=== PATIENT | female | born 1955 | race Caucasian/White ===

== ENCOUNTER 2017-01-18 12:02 | Inpatient (IN) | payer OTHER ==
[~2017-01-18] VITALS: Ht 175.3 cm; Wt 105.4 kg
[~2017-01-18 12:02] MED LIST: DICL-86 PO; LEVO.075 PO; LEXA20TA PO; LOVA1TAB47 PO; NEUR100C PO; PREV30CA36 PO; TELM40 PO; TOPI25 PO
[2017-01-18 12:04] VITALS: BP 145/93; PULSE 91; RESP 15; TEMP 98.2; O2SAT 98
--- NOTE | 2017-01-18 12:07 | PD ---
Physical Exam Time Seen by Provider: 12:05 Narrative 61 y/o female sent by her pcp for evaluation/treatment of DVT L arm. Pain in L arm for 2 days, diagnosed yesterday, referred here today. Vital signs reviewed. Seen at triage desk. Awaiting bed placement. Data Data Last Documented VS Vital Signs Date Time Temp Pulse Resp B/P Pulse Ox O2 Delivery O2 Flow Rate FiO2 01/18/17 12:04 98.2 91 15 145/93 98 MDM Medical Record Reviewed: Yes Supervised Visit with PAOLO: Enrike St Jan 18, 2017 12:07
[2017-01-18 12:28] VITALS: BP 158/94; PULSE 88; RESP 18; TEMP 98.7; O2SAT 96
[2017-01-18] MEDS ORDERED: MORPHINE SULFATE 4 MG/ML INJ IV PUSH ONE (12:30)
[2017-01-18 12:35] VITALS: RESP 18; O2SAT 95
--- NOTE | 2017-01-18 12:41 | PD ---
HPI Chief Complaint: Abnormal Results Time Seen by Provider: 12:22 Travel History International Travel<30 days: No Contact w/Intl Traveler<30days: No Traveled to known affect area: No History of Present Illness HPI 7-year-old female arrives with left arm pain swelling and erythema. It started about 2 days ago. She woke up with the pain. It's worse with palpation. She notes burning pain. An ultrasound was performed yesterday which revealed "extensive DVT involving the left upper extremity venous system extending from the axillary vein to the level of the ulnar vein. Subclavian and internal jugular veins not imaged. All other veins demonstrate thrombus that is mostly occlusive." Patient reports bilateral ankle fractures about 5 months prior. She reports flying to [place] about a month ago. She does not have a history of DVT or hypercoagulable state. No oral hormone therapy. PFSH Past Medical History Arthritis: Yes (RHEUMATOID) Blood Disorders: No Cancer: Yes (UTERINE AND OVARIAN CA) Cardiovascular Problems: Yes Chemotherapy: No Diminished Hearing: No Endocrine: Yes Gastrointestinal Disorders: Yes Genitourinary: No Headaches: Yes Hypertension: Yes Immune Disorder: No Musculoskeletal: No Neurologic: Yes Psychiatric: No Respiratory: No Radiation Therapy: No Thyroid Disease: Yes Tetanus Vaccination: > 5 Years Influenza Vaccination: Yes Menopausal: No Past Surgical History Gynecologic Surgery: Yes (AGE 22 PARTIAL HYSTERECTOMY, 1994 L OVARY REMOVED AND COMPLETION OF HYSTERE) Hysterectomy: Yes Other Surgery: Yes Social History Alcohol Use: Yes (OCCASIONAL) Tobacco Use: Yes (/ PPD) Substance Use: No Allergies-Medications (Allergen,Severity, Reaction): Coded Allergies: No Known Allergies (Verified , 01/18/17) Reported Meds & Prescriptions Reported Meds & Active Scripts Active Reported Doxycycline (Doxycycline (Monohydrate)) 100 Mg Cap 100 Mg PO BID Eliquis (Apixaban) 5 Mg Tab 5 Mg PO BID Humira 2-Pack Inj (Adalimumab 2-Pack Inj) 40 Mg/0.8 Ml Syr 40 Mg SQ Q14D Methotrexate 2.5 Mg Tab 2.5 Mg PO Q7D Tizanidine (Tizanidine HCl) 4 Mg Cap 4 Mg PO HS Protonix (Pantoprazole Sodium) 40 Mg Tab 40 Mg PO BID Lasix (Furosemide) 20 Mg Tab 20 Mg PO DAILY Folic Acid 20 Mg Cap 1 Mg PO DAILY Lexapro (Escitalopram Oxalate) 20 Mg Tab 20 Mg PO DAILY Topamax (Topiramate) 100 Mg Tab 100 Mg PO BID Synthroid (Levothyroxine Sodium) 175 Mcg Tab 175 Mcg PO DAILY Lovastatin 20 Mg Tab 20 Mg PO DAILY Losartan (Losartan Potassium) 100 Mg Tab 100 Mg PO DAILY Review of Systems Except as stated in HPI: all other systems reviewed are Neg Physical Exam Narrative GENERAL: 61-year-old female pleasant well-nourished well-developed SKIN: Focused skin assessment warm/dry. HEAD: Atraumatic. Normocephalic. EYES: Pupils equal and round. No scleral icterus. No injection or drainage. ENT: No nasal bleeding or discharge. Mucous membranes pink and moist. NECK: Trachea midline. No JVD. CARDIOVASCULAR: Regular rate and rhythm. No murmur appreciated. RESPIRATORY: No accessory muscle use. Clear to auscultation. Breath sounds equal bilaterally. GASTROINTESTINAL: Abdomen soft, non-tender, nondistended. Hepatic and splenic margins not palpable. MUSCULOSKELETAL: No obvious deformities. No clubbing. No cyanosis. Swelling tenderness erythema on the region of the left proximal forearm within the region of the antecubital fossa and along the medial distal humerus distribution. 2+ dorsalis pedis bilaterally. NEUROLOGICAL: Awake and alert. No obvious cranial nerve deficits. Motor grossly within normal limits. Normal speech. PSYCHIATRIC: Appropriate mood and affect; insight and judgment normal. Data Data Last Documented VS Vital Signs Date Time Temp Pulse Resp B/P Pulse Ox O2 Delivery O2 Flow Rate FiO2 01/18/17 12:35 18 95 Room Air 01/18/17 12:28 98.7 88 158/94 Vital signs reviewed Orders Basic Metabolic Panel (Bmp) (01/18/17 12:27) Complete Blood Count With Diff (01/18/17 12:27) Prothrombin Time / Inr (Pt) (01/18/17 12:27) Act Partial Throm Time (Ptt) (01/18/17 12:27) Ecg Monitoring (01/18/17 12:27) Iv Access Insert/Monitor (01/18/17 12:27) Oximetry (01/18/17 12:27) Oxygen Administration (01/18/17 12:27) Morphine Inj (Morphine Inj) (01/18/17 12:30) Sodium Chloride 0.9% Flush (Ns Flush) (01/18/17 12:30) Sodium Chlor 0.9% 1000 Ml Inj (Ns 1000 M (01/18/17 12:30) Heparin Infusion RISSA.Q1H (01/18/17 12:32) Heparin Inj (Heparin Inj) (01/18/17 12:45) Heparin Inj (Heparin Inj) (01/18/17 18:45) Heparin Inj (Heparin Inj) (01/18/17 18:45) Heparin-D5w Inj (Heparin-D5w Inj) (01/18/17 12:45) Cbc No Diff, Includes Plts (01/21/17 06:00) Act Partial Throm Time (Ptt) (01/18/17 19:32) Occult Blood (Hemoccult) Stool (01/18/17 12:32) Invasive Rad Dept Consult (01/18/17 ) Admit Order (Ed Use Only) (01/18/17 12:45) MDM Medical Decision Making Medical Screen Exam Complete: Yes Emergency Medical Condition: Yes Medical Record Reviewed: Yes Differential Diagnosis DVT, hypercoagulable state, cellulitis Narrative Course Heparin started. Case discussed with Invasive Radiology, Dr Fine, who requests IR consultation with admission to hospitalist service. Patient will be admitted with plan for invasive radiology intervention. CBC: WBC 7.1 Hgb 11.5 Plt Count 228 BMP: normal INR 1.0 Plan for admission d/w Dr Chris. Diagnosis Primary Impression: Acute thrombosis of deep vein of left upper extremity Qualified Code: I82.622 - Acute deep vein thrombosis (DVT) of other vein of left upper extremity Admitting Information Admitting Physician Requests: Observation Deejay Campbell MD Jan 18, 2017 12:41
[2017-01-18] MEDS ORDERED: HEPARIN SODIUM - IV 10,000 UNITS/10 ML VIAL IV ONE ×2 (12:45→13:30)
[2017-01-18] MEDS ORDERED: HEPARIN-D5W INJ 250 ML IV SCH ×2 (12:45→15:45)
[2017-01-18] MEDS ORDERED: METH2.5T PO (12:47)
[2017-01-18] MEDS ORDERED: TIZA4CAP3 PO (12:47)
[2017-01-18] MEDS ORDERED: SYNT175T PO (12:47)
[2017-01-18] MEDS ORDERED: FURO1TAB62 PO (12:47)
[2017-01-18] MEDS ORDERED: LEXA20TA PO (12:47)
[2017-01-18] MEDS ORDERED: TOPA100T11 PO (12:47)
[2017-01-18] MEDS ORDERED: LOVA20TA PO (12:47)
[2017-01-18] MEDS ORDERED: FOLI20CA PO (12:47)
[2017-01-18] MEDS ORDERED: PROT40TA PO (12:47)
[2017-01-18] MEDS ORDERED: LOSA100T PO (12:47)
[2017-01-18] MEDS ORDERED: APIX5TAB PO (12:48)
[2017-01-18] MEDS ORDERED: DOXY1CAP91 PO (12:48)
[2017-01-18] MEDS ORDERED: HUMI40KI SQ (12:48)
[2017-01-18 13:14] LABS: AUTOMATED NEUTROPHIL # 4.2 TH/MM3 (1.8-7.7); BASOPHIL % 0.4 % (0.0-2.0); EOSINOPHIL # 0.1 TH/MM3 (0-0.4); EOSINOPHIL % 1.8 % (0.0-4.0); HEMATOCRIT 34.6 % (35.0-46.0); HEMO FLAGS DIFF FINAL; LYMPH % 29.9 % (9.0-44.0); LYMPHOCYTE # 2.1 TH/MM3 (1.0-4.8); MEAN CELL VOLUME 87.7 FL (80.0-100.0); MEAN CORPUSCULAR HEMOGLOBIN 29.2 PG (27.0-34.0); MEAN CORPUSCULAR HGB CONC 33.2 % (32.0-36.0); MONO % 8.3 % (0.0-8.0); NEUT % 59.6 % (16.0-70.0); PLATELET COUNT 228 TH/MM3 (150-450); RED BLOOD COUNT 3.94 MIL/MM3 (4.00-5.30); WHITE BLOOD COUNT 7.1 TH/MM3 (4.0-11.0)
--- NOTE | 2017-01-18 13:22 | HHI.HP ---
HPI Service [facility] Hospitalists Primary Care Physician Modesto Mckenzie MD Admission Diagnosis Acute LUE DVT Chief Complaint: LUE DVT Travel History International Travel<30 Days: No Contact w/Intl Traveler <30 Da: No Traveled to Known Affected Are: No History of Present Illness Ms. Suarez is a 61 y/o WF with RA, hyperlipidemia, HTN, and hypothyroidism who presented to the ED at [facility] on 01/18/17 with left arm pain, swelling and erythema that started about 2 days ago. She reports that she woke up with the pain in the LUE and noted erythema. She called her PCP but was unable to get into to see him and she went to [facility] for evaluation. They started her on Doxycycline and Eliquis on 01/17/17. An ultrasound was performed yesterday which revealed "extensive DVT involving the left upper extremity venous system extending from the axillary vein to the level of the ulnar vein. Subclavian and internal jugular veins not imaged. All other veins demonstrate thrombus that is mostly occlusive." She was sent to the ED for further evaluation. Pt has been started on Heparin gtt and she will be seen by IR for a venogram and attempt at removing the clot today. She does not have a history of DVT or hypercoagulable state. She does not take any oral hormone replacement therapy. Patient reports bilateral ankle fractures about 5 months prior. She reports flying to [place] about a month ago. Review of Systems Constitutional: DENIES: Fever, Chills Eyes: DENIES: Vision loss Ears, nose, mouth, throat: DENIES: Hearing loss Respiratory: DENIES: Cough, Shortness of breath Cardiovascular: DENIES: Chest pain, Palpitations, Dyspnea on Exertion, Lower Extremity Edema Gastrointestinal: DENIES: Abdominal pain, Black stools, Bloody stools, Nausea, Vomiting Genitourinary: DENIES: Hematuria, Dysuria Musculoskeletal: COMPLAINS OF: Joint pain, Joint Swelling Integumentary: COMPLAINS OF: Abnormal pigmentation, DENIES: Rash Neurologic: DENIES: Headache Psychiatric: DENIES: Confusion Past Family Social History Past Medical History Bilateral ankle fracture in 07/2016 Hx of uterine and ovarian cancer at 22 y/o RA Hypothyroidism HTN Hyperlipidemia Fatty liver Depression Hx of PUD Past Surgical History Surgery to bilateral ankles with hardware placement in 07/2016 Partial hysterectomy with right oophorectomy at age 22 Left oophorectomy in 1994 Colonoscopy 2-3 years ago Left knee arthroscopy Reported Medications Doxycycline (Doxycycline (Monohydrate)) 100 Mg Cap 100 Mg PO BID Eliquis 5 Mg PO BID, started on 01/17, only taken 2 pills Humira 2-Pack Inj (Adalimumab 2-Pack Inj) 40 Mg/0.8 Ml Syr 40 Mg SQ Q14D Methotrexate 2.5 Mg Tab 2.5 Mg PO Q7D Tizanidine (Tizanidine HCl) 4 Mg Cap 4 Mg PO HS Protonix (Pantoprazole Sodium) 40 Mg Tab 40 Mg PO BID Lasix (Furosemide) 20 Mg Tab 20 Mg PO DAILY Folic Acid 20 Mg Cap 1 Mg PO DAILY Lexapro (Escitalopram Oxalate) 20 Mg Tab 20 Mg PO DAILY Topamax (Topiramate) 100 Mg Tab 100 Mg PO BID Synthroid (Levothyroxine Sodium) 175 Mcg Tab 175 Mcg PO DAILY Lovastatin 20 Mg Tab 20 Mg PO DAILY Losartan (Losartan Potassium) 100 Mg Tab 100 Mg PO DAILY Allergies: Coded Allergies: No Known Allergies (Verified , 01/18/17) Family History Father at age 58y/o from lung cancer Social History (+)Tobacco use, 3-4 cigarettes per day but has smoked heavier in the past, started at age 16 (+)Occasional alcohol use Physical Exam Vital Signs Vital Signs Date Time Temp Pulse Resp B/P Pulse Ox O2 Delivery O2 Flow Rate FiO2 01/18/17 12:35 18 95 Room Air 01/18/17 12:28 98.7 88 18 158/94 96 Room Air 01/18/17 12:28 18 01/18/17 12:04 98.2 91 15 145/93 98 Physical Exam GENERAL: This is a well-nourished, well-developed patient, in no apparent distress. HEENT: Atraumatic. Normocephalic. No temporal or scalp tenderness. No scleral icterus. Airway patent. NECK: Trachea midline, supple, nontender. CARDIO: Regular. RESP: CTA bilaterally. No wheezes, rales, or rhonchi. ABD: +BS, soft, non-tender, nondistended. EXT: LUE erythema and tenderness above, below and on the antecubital fossa with palpable cords in the antecubital fossa. NEURO: Awake and alert. Motor and sensory grossly within normal limits. Normal speech. Septic Shock Reassessment Heart: Regular rate and rhythm Lungs: Clear Skin: Warm Assessment and Plan Problem List: (1) Acute thrombosis of deep vein of left upper extremity Status: Acute Plan: - Pt is a 61 y/o female who presented to the ED with left arm pain, swelling and erythema that started about 2 days ago. - She was seen outpt at [facility] on 01/17/17 and was started her on Doxycycline and Eliquis. - An LUE ultrasound was performed on 01/17/17 which revealed extensive DVT involving the left upper extremity venous system extending from the axillary vein to the level of the ulnar vein. Subclavian and internal jugular veins not imaged. All other veins demonstrate thrombus that is mostly occlusive. - She was sent to the ED for further evaluation. - Pt has been started on Heparin gtt and she will be seen by IR for a venogram and attempt at removing the clot today. - Cont. Heparin gtt - The LUE DVT seems to be unprovoked. She does not have any hx of DVT, she is not on any hormone replacement therapy. - She did fly to [place] about a month ago but would be unusual to develop a DVT in the UE related to this. - Pt has a hx of tobacco use and her father at a young age, 58, with lung cancer. - We will evaluate with w CT scan of the chest in the next day or so depending on how much contrast she receives with the procedure today for clot removal. (2) HTN (hypertension) Status: Chronic Plan: - Cont. home meds (3) Hyperlipidemia Status: Chronic Plan: - Cont. home meds (4) Hypothyroidism Status: Chronic Plan: - Cont. home meds (5) Tobacco use Status: Chronic Plan: - Tobacco cessation Assessment and Plan Patient examined. Assessment and plan formulated with Meron Driver PA-C. I agree with the above. thrombosis venous system lue. superficial redness/cords and tenderness heparin initiated. sent to IR for eval and thrombectomy if possible. Problem Qualifiers (1) Acute thrombosis of deep vein of left upper extremity: Qualified Code: I82.622 - Acute deep vein thrombosis (DVT) of other vein of left upper extremity Meron Driver Jan 18, 2017 13:22 Jose Steinberg MD Jan 18, 2017 21:50
[2017-01-18 13:25] LABS: APTT (PATIENT) 28.2 SEC (24.3-30.1); PROTHROMBIN TIME - PATIENT 11.2 SEC (9.8-11.6)
[2017-01-18 13:26] LABS: BICARBONATE 22.7 MEQ/L (21.0-32.0); POTASSIUM 3.6 MEQ/L (3.5-5.1)
[2017-01-18] MEDS ORDERED: fentaNYL CITRATE 250 MCG/5 ML AMP ONE (14:29)
[2017-01-18] MEDS ORDERED: MORPHINE SULFATE 4 MG/ML INJ IV PUSH PRN (14:30)
[2017-01-18] MEDS ORDERED: ONDANSETRON HCL 4 MG/2 ML VIAL IV PUSH PRN (14:30)
[2017-01-18] MEDS ORDERED: IOHEXOL 350 MG/ML 100 ML BTL (for RAD DIAG) OTHER ONE (15:15)
[2017-01-18 16:00] VITALS: BP 131/92; PULSE 65; RESP 20; TEMP 97.4; O2SAT 94
--- NOTE | 2017-01-18 16:50 | RADRPT ---
EXAM DATE/TIME: 01/18/2017 15:16 [facility] COMPARISON: No previous studies available for comparison. INDICATIONS : Patient with left arm DVT in need of venogram. MEDICAL HISTORY : HTN Hyperlipidemia Rheumatoid arthritis Hypothyroidism Bilateral ankle fractures 07/2016 HX of uterine and ovarian cancer at 22yrs old SURGICAL HISTORY : Bilateral ankles with hardware placement Partial hysterectomy with right oophorectomy at 22yrs old Left oophorectomy 1995 Colonoscopy ENCOUNTER: Initial ACUITY: 2 days PAIN SCORE: 8/10 LOCATION: Left arm FLUORO TIME: 2.1 minutes IMAGE SERIES: 5 ACCESS SITE: Left ulnar vein CONTRAST: 16 cc Omnipaque (iohexol) 350 MEDICATION(S): 1.) 150 mcg fentanyl (Sublimaze) IV PROCEDURE : 1. Ultrasound-guided venipuncture. 2. Venogram. The risks, benefits and alternatives to the procedure were explained and verbal and written consent w as obtained. The site was prepped in sterile fashion. Full sterile technique was used, including ca p, mask, sterile gloves and gown and a large sterile sheet. Hand hygiene and 2% chlorhexidine and/or betadine/alcohol prep was utilized per protocol for cutaneous antisepsis. The skin and subcutaneous tissues were infiltrated with local anesthetic solution. With ultrasound guidance the selected vein was punctured and positive contrast was injected to demons trate the venous anatomy of the affected extremity. Patient presented with an outside ultrasound report that described extensive thrombosis from the axil anay vein distally into the ulnar. However, preprocedural ultrasound at bedside showed the venous sys tem above the elbow to be patent. Occlusion of the brachial basilic system was identified in the aye on of the antecubital fossa and there was distention and occlusion of the radial vein with a diminuti ve cephalic vein which appeared markedly atretic. With ultrasound guidance, a dermatotomy was made over the radial vein in the subcutaneous tissues wer e bluntly dissected. Access was obtained with a 21 gauge micropuncture needle. The .018 wire was adva nced through the needle into the vein. Over the wire, a 3-4 dilator was placed. 035 wire was advanced through the outer 4 Greek dilator to facilitate placement of a short 6 Greek side-port sheath. A h ockey-stick catheter was then advanced over the wire and through the sheath into the brachial vein. C ontrast injection showed a widely patent brachial basilic system above the elbow. The axillary, subcl raina veins and SVC were also patent. Catheter was withdrawn to the level of the elbow appear contrast injection showed occlusion of the ra dial vein throughout its length. The cephalic vein also appeared to be quite diminutive with segmenta l occlusions. The ulnar vein was not evaluated but appear to be patent on the preprocedural ultrasoun d. CONCLUSION: 1. Uncomplicated venogram as above. 2. The deep venous system above the elbow is all widely patent. 3. Patient has occlusion of the radial vein throughout its course. Clinical symptoms of associated th rombophlebitis. Heparin drip was initiated. Treatment should include elevation of the affected extrem ity with warm compresses to the left forearm. Meir Fine MD on January 18, 2017 at 16:25 Board Certified Radiologist. This report was verified electronically.
[2017-01-18 17:46] VITALS: BP 128/68; PULSE 64; RESP 16; TEMP 97.1; O2SAT 100
[2017-01-18] MEDS ORDERED: HEPARIN SODIUM - IV 10,000 UNITS/10 ML VIAL IV PRN ×2 (18:45)
[2017-01-18 20:00] VITALS: BP 114/79; PULSE 70; RESP 16; TEMP 97; O2SAT 97
[2017-01-18 20:35] LABS: APTT (PATIENT) 27.5 SEC (24.3-30.1)
[2017-01-18] MEDS: TOPIRAMATE 100 MG TAB PO SCH (21:55)
[2017-01-18] MEDS: PANTOPRAZOLE SOD 40 MG DELAYED RELEASE TAB PO SCH (21:55)
[2017-01-18] MEDS: MORPHINE SULFATE 4 MG/ML INJ IV PUSH PRN (21:55)
[2017-01-19] VITALS: BP 110/67; PULSE 69; RESP 16; TEMP 96.8; O2SAT 95
[2017-01-19] MEDS: MORPHINE SULFATE 4 MG/ML INJ IV PUSH PRN ×6 (02:12→20:14)
[2017-01-19 04:00] VITALS: BP 136/85; PULSE 61; RESP 16; TEMP 97.2; O2SAT 96
[2017-01-19 04:54] LABS: APTT (PATIENT) 56.7 SEC (24.3-30.1)
[2017-01-19] MEDS: LEVOTHYROXINE SODIUM 150 MCG TAB PO SCH (05:27)
[2017-01-19] MEDS: LEVOTHYROXINE SODIUM 25 MCG TAB PO SCH (05:27)
[2017-01-19 08:00] VITALS: BP 137/82; PULSE 68; RESP 18; TEMP 96.7; O2SAT 96
--- NOTE | 2017-01-19 08:09 | HHI.PR ---
Subjective Remarks still with swelling and pain lue. antecubital area the worst. also was having some pains in left lower leg since her ankle fxs Objective Vitals heart reg lung cta abd s/nt ext lue cords/redness/tenderness just above the antecubital fossa. redness/cords antecubital fossa and some redness and tenderness on left forearm. Vital Signs Date Time Temp Pulse Resp B/P Pulse Ox O2 Delivery O2 Flow Rate FiO2 01/19/17 04:00 97.2 61 16 136/85 96 01/19/17 00:00 96.8 69 16 110/67 95 01/18/17 20:00 97.0 70 16 114/79 97 01/18/17 17:46 97.1 64 16 128/68 100 01/18/17 16:00 97.4 65 20 131/92 94 01/18/17 12:35 18 95 Room Air 01/18/17 12:28 98.7 88 18 158/94 96 Room Air 01/18/17 12:28 18 01/18/17 12:04 98.2 91 15 145/93 98 Result Diagram: 01/18/17 1302 01/18/17 1302 A/P Problem List: (1) Acute thrombosis of deep vein of left upper extremity Status: Acute Plan: - Pt is a 61 y/o female who presented to the ED with left arm pain, swelling and erythema that started about 2 days ago. - She was seen outpt at [facility] on 01/17/17 and was started her on Doxycycline and Eliquis. - An LUE ultrasound was performed on 01/17/17 which revealed extensive DVT involving the left upper extremity venous system extending from the axillary vein to the level of the ulnar vein. Subclavian and internal jugular veins not imaged. All other veins demonstrate thrombus that is mostly occlusive. - She was sent to the ED for further evaluation. - Pt has been started on Heparin gtt in ED and sent to IR for venogram....found to have occlusion of radial veing. with concern for thrombophlebitis.. - The LUE DVT seems to be unprovoked. She does not have any hx of DVT, she is not on any hormone replacement therapy. - She did fly to [place] about a month ago but would be unusual to develop a DVT in the UE related to this. - Pt has a hx of tobacco use and her father at a young age, 58, with lung cancer. elevate arm. k thermia pad cont iv heparin will get ct c/a/p prior to d/c home cont ivf will get appropriate hypercoag panel now and then more as needed after off anticoagulation. and she will be seen by IR for a venogram and attempt at removing the clot today. - Cont. Heparin gtt (2) HTN (hypertension) Status: Chronic Plan: - Cont. home meds (3) Hyperlipidemia Status: Chronic Plan: - Cont. home meds (4) Hypothyroidism Status: Chronic Plan: - Cont. home meds (5) Tobacco use Status: Chronic Plan: - Tobacco cessation Problem Qualifiers (1) Acute thrombosis of deep vein of left upper extremity: Qualified Code: I82.622 - Acute deep vein thrombosis (DVT) of other vein of left upper extremity Jose Steinberg MD Jan 19, 2017 08:09
[2017-01-19] MEDS: FOLIC ACID 1 MG TAB PO SCH (09:43)
[2017-01-19] MEDS: LOSARTAN 50 MG TAB PO SCH (09:43)
[2017-01-19] MEDS: PANTOPRAZOLE SOD 40 MG DELAYED RELEASE TAB PO SCH ×2 (09:43→21:17)
[2017-01-19] MEDS: FUROSEMIDE 20 MG TAB PO SCH (09:43)
[2017-01-19] MEDS: ESCITALOPRAM OXALATE 20 MG TAB PO SCH (09:43)
[2017-01-19] MEDS: PRAVASTATIN SOD 20 MG TAB PO SCH (09:43)
[2017-01-19] MEDS: TOPIRAMATE 100 MG TAB PO SCH ×2 (09:53→21:17)
[2017-01-19] MEDS ORDERED: INFLUENZA VIRUS VACCINE (QUADRIVALENT) 0.5 ML SYR IM ONE (10:00)
--- NOTE | 2017-01-19 11:28 | RADRPT ---
EXAM DATE/TIME: 01/19/2017 10:00 [facility] COMPARISON: No previous studies available for comparison. INDICATIONS : Bilateral leg swelling. MEDICAL HISTORY : Hypercholesterolemia. Hypertension. Gastroesophageal reflux disease. Migrane. Ulcer. Arthritis. Ovari an/Uterine cancer. Anti coagulant, heprin. SURGICAL HISTORY : Hysterectomy. Pins/Rods Right/Left lower legs. ENCOUNTER: Initial ACUITY: 2 day PAIN SCORE: 4/10 LOCATION: Bilateral leg. TECHNIQUE: Venous ultrasound of the left and right leg was performed from the inguinal ligament to the proximal calf. Real-time, color Doppler and spectral tracing, compression and augmentation techniques were us ed. FINDINGS: RIGHT LEG: Incomplete compression of the popliteal vein and incomplete compression of the proximal peroneal vein but normal filling with color Doppler flow in these regions. Normal compression and normal color Dop pler flow of all of the other deep veins of the right lower extremity. LEFT LEG: There is normal compressibility of the deep venous system from the inguinal region to the proximal ca lf. No echogenic clot is seen in the lumen of the common femoral, femoral, popliteal, and posterior tibial veins. There is a normal response of the venous system to proximal and distal augmentation an d respiration. CONCLUSION: 1. Incomplete compression of the popliteal vein and proximal peroneal vein on the right indicating po ssible small nonocclusive thrombus. This finding is not confirmed on the color Doppler images. 2. No evidence of lower extremity DVT on the left. Geovany Puga MD on January 19, 2017 at 11:23 Board Certified Radiologist. This report was verified electronically.
[2017-01-19 12:00] VITALS: BP 114/72; PULSE 64; RESP 18; TEMP 97; O2SAT 96
[2017-01-19 12:15] LABS: APTT (PATIENT) 30.8 SEC (24.3-30.1)
[2017-01-19 16:00] VITALS: BP 112/64; PULSE 65; RESP 18; TEMP 97; O2SAT 97
[2017-01-19] MEDS: SODIUM CHLOR 0.9% 1000 ML INJ 1,000 ML IV SCH ×2 (16:40→20:16)
[2017-01-19 19:00] LABS: APTT (PATIENT) 34.2 SEC (24.3-30.1)
[2017-01-19 20:00] VITALS: BP 107/63; PULSE 61; RESP 17; TEMP 97.5; O2SAT 96
[2017-01-20] VITALS: BP 91/51; PULSE 66; RESP 16; TEMP 96.3; O2SAT 95
[2017-01-20 03:04] VITALS: BP 133/82; PULSE 67; RESP 17; TEMP 97.3; O2SAT 99
[2017-01-20] MEDS: MORPHINE SULFATE 4 MG/ML INJ IV PUSH PRN ×7 (03:08→23:27)
[2017-01-20 04:15] LABS: APTT (PATIENT) 35.9 SEC (24.3-30.1)
[2017-01-20 04:33] LABS: BICARBONATE 24.8 MEQ/L (21.0-32.0); POTASSIUM 3.9 MEQ/L (3.5-5.1)
[2017-01-20] MEDS: SODIUM CHLOR 0.9% 1000 ML INJ 1,000 ML IV SCH (06:20)
[2017-01-20] MEDS: LEVOTHYROXINE SODIUM 150 MCG TAB PO SCH (06:21)
[2017-01-20] MEDS: LEVOTHYROXINE SODIUM 25 MCG TAB PO SCH (06:21)
[2017-01-20] MEDS ORDERED: SODIUM CHLOR 0.9% 1000 ML INJ 1,000 ML IV ONE (07:30)
[2017-01-20 07:46] VITALS: BP 123/64; PULSE 61; RESP 18; TEMP 96.4; O2SAT 96
--- NOTE | 2017-01-20 08:55 | HHI.PR ---
Subjective Remarks still with some pain in left antecubital fossa/forearm Objective Vitals left antecub fossa, cords/tender.redness better swelling of forearm. good distal pulses. heart reg lungc ta abd s/nt Vital Signs Date Time Temp Pulse Resp B/P Pulse Ox O2 Delivery O2 Flow Rate FiO2 01/20/17 07:46 96.4 61 18 123/64 96 01/20/17 06:41 18 01/20/17 03:04 97.3 67 17 133/82 99 01/20/17 00:00 96.3 66 16 91/51 95 01/19/17 20:00 97.5 61 17 107/63 96 01/19/17 16:00 97.0 65 18 112/64 97 01/19/17 12:00 97.0 64 18 114/72 96 01/19/17 01/19/17 01/20/17 15:00 23:00 07:00 Intake Total 1776 ml 720 ml 300 ml Output Total 400 ml Balance 1776 ml 720 ml -100 ml Intake Oral 960 ml 720 ml 300 ml IV Total 816 ml Output Urine Total 400 ml # Voids 5 5 # Bowel Movements 0 Result Diagram: 01/18/17 1302 01/20/17 0345 A/P Problem List: (1) Acute thrombosis of deep vein of left upper extremity Status: Acute Plan: - Pt is a 61 y/o female who presented to the ED with left arm pain, swelling and erythema that started about 2 days ago. - She was seen outpt at [facility] on 01/17/17 and was started her on Doxycycline and Eliquis. - An LUE ultrasound was performed on 01/17/17 which revealed extensive DVT involving the left upper extremity venous system extending from the axillary vein to the level of the ulnar vein. Subclavian and internal jugular veins not imaged. All other veins demonstrate thrombus that is mostly occlusive. - She was sent to the ED for further evaluation. - Pt has been started on Heparin gtt in ED and sent to IR for venogram....found to have occlusion of radial vein with concern for thrombophlebitis.. - The LUE DVT seems to be unprovoked. She does not have any hx of DVT, she is not on any hormone replacement therapy. - She did fly to [place] about a month ago but would be unusual to develop a DVT in the UE related to this. - Pt has a hx of tobacco use and her father at a young age, 58, with lung cancer. elevate arm. k thermia pad d/c iv heparin. unable to get therapeutic. lovenox for now will get ct c/a/p prior to d/c home cont ivf until after ct scan will get appropriate hypercoag panel now and then more as needed after off anticoagulation. -Pt concerned with her strong fh of malignancy. ct c/a/p (2) HTN (hypertension) Status: Chronic Plan: - Cont. home meds (3) Hyperlipidemia Status: Chronic Plan: - Cont. home meds (4) Hypothyroidism Status: Chronic Plan: - Cont. home meds (5) Tobacco use Status: Chronic Plan: - Tobacco cessation Problem Qualifiers (1) Acute thrombosis of deep vein of left upper extremity: Qualified Code: I82.622 - Acute deep vein thrombosis (DVT) of other vein of left upper extremity Jose Steinberg MD Jan 20, 2017 08:55 Jose Steinberg MD Jan 20, 2017 08:55
[2017-01-20] MEDS: LOSARTAN 50 MG TAB PO SCH (09:58)
[2017-01-20] MEDS: PANTOPRAZOLE SOD 40 MG DELAYED RELEASE TAB PO SCH ×2 (09:58→20:07)
[2017-01-20] MEDS: TOPIRAMATE 100 MG TAB PO SCH ×2 (09:58→20:06)
[2017-01-20] MEDS: FUROSEMIDE 20 MG TAB PO SCH (09:58)
[2017-01-20] MEDS: FOLIC ACID 1 MG TAB PO SCH (09:59)
[2017-01-20] MEDS: PRAVASTATIN SOD 20 MG TAB PO SCH (09:59)
[2017-01-20] MEDS: ESCITALOPRAM OXALATE 20 MG TAB PO SCH (09:59)
[2017-01-20] MEDS: ENOXAPARIN SODIUM 100 MG/ML SYRINGE SQ SCH ×2 (10:07→23:26)
[2017-01-20] MEDS ORDERED: DIATRIZOATE MEGLUM/DIATRIZOATE SOD 9 ML CUP PO ONE (10:15)
[2017-01-20 12:00] VITALS: BP 114/73; PULSE 58; RESP 16; TEMP 97; O2SAT 100
[2017-01-20 12:51] LABS: APTT (PATIENT) 30.4 SEC (24.3-30.1)
[2017-01-20] MEDS ORDERED: IOHEXOL 350 MG/ML 10 ML VIAL (for RAD DIAG) IV ONE (15:46)
[2017-01-20 16:00] VITALS: BP 111/60; PULSE 63; RESP 16; TEMP 96.6; O2SAT 100
--- NOTE | 2017-01-20 16:10 | RADRPT ---
EXAM DATE/TIME: 01/20/2017 15:45 [facility] COMPARISON: No previous studies available for comparison. INDICATIONS : Tumor. IV CONTRAST: 97 cc Omnipaque 350 (iohexol) IV ORAL CONTRAST: Prescribed oral contrast ingested. RADIATION DOSE: 19.81 CTDIvol (mGy) MEDICAL HISTORY : Cardiovascular disease. Chronic obstructive pulmonary disease. uterine and ovarian cancer SURGICAL HISTORY : Hysterectomy. ENCOUNTER: Initial ACUITY: 1 day PAIN SCALE: 0/10 LOCATION: Bilateral abdomen TECHNIQUE: Volumetric scanning of the abdomen and pelvis was performed. Using automated exposure control and ad justment of the mA and/or kV according to patient size, radiation dose was kept as low as reasonably achievable to obtain optimal diagnostic quality images. FINDINGS: LOWER LUNGS: The visualized lower lungs are clear. Coronary artery calcifications. LIVER: Decreased attenuation without lesion. There is no dilation of the biliary tree. No calcified gallst ones. Focal adenomyomatosis of the gallbladder fundus. Subcentimeter low-density hepatic lesion. SPLEEN: Normal size without lesion. Calcified splenic granulomas. PANCREAS: Within normal limits. KIDNEYS: Normal in size and shape. There is no mass, stone or hydronephrosis. ADRENAL GLANDS: Within normal limits. VASCULAR: There is no aortic aneurysm. BOWEL/MESENTERY: The stomach, small bowel, and colon demonstrate no acute abnormality. There is no free intraperitone al air or fluid. ABDOMINAL WALL: Within normal limits. RETROPERITONEUM: There is no lymphadenopathy. BLADDER: No wall thickening or mass. REPRODUCTIVE: Status post hysterectomy. INGUINAL: There is no lymphadenopathy or hernia. MUSCULOSKELETAL: Within normal limits for patient age. CONCLUSION: 1. Mild hepatic steatosis. 2. Focal adenomyomatosis of the gallbladder fundus, benign. 3. Calcified splenic granulomas. 4. Subcentimeter low-density likely related to hepatic cyst. 5. Status post hysterectomy. 6. Coronary artery calcifications and scattered atherosclerotic changes. Rl Interiano MD on January 20, 2017 at 16:06 Board Certified Radiologist. This report was verified electronically.
--- NOTE | 2017-01-20 16:18 | RADRPT ---
EXAM DATE/TIME: 01/20/2017 15:45 [facility] COMPARISON: No previous studies available for comparison. INDICATIONS : Neoplasm. IV CONTRAST: 97 cc Omnipaque 350 (iohexol) IV ; Cumulative dose for multiple exams. RADIATION DOSE: 19.81 CTDIvol (mGy) ; Combined studies MEDICAL HISTORY : Chronic obstructive pulmonary disease. Cardiovascular disease uterine and ovarian cancer SURGICAL HISTORY : Hysterectomy. ENCOUNTER: Initial ACUITY: 1 day PAIN SCALE: 0/10 LOCATION: Bilateral chest TECHNIQUE: Volumetric scanning of the chest was performed. Using automated exposure control and adjustment of t he mA and/or kV according to patient size, radiation dose was kept as low as reasonably achievable to obtain optimal diagnostic quality images. FINDINGS: LUNGS: There is no consolidation or pneumothorax. Small nodule lateral right lower lobe measuring 5-6 mm. Mi nimal atelectasis in the right lower lobe laterally. Small pneumatocele left lower lobe. PLEURA: There is no pleural thickening or pleural effusion. MEDIASTINUM: The heart and great vessels demonstrate no acute abnormality. There is no mediastinal or hilar lymph adenopathy. Coronary artery calcifications. AXILLAE: Within normal limits. No lymphadenopathy. SKELETAL: Within normal limits for patient age. MISCELLANEOUS: The visualized upper abdominal organs demonstrate no acute abnormality. CONCLUSION: 1. A 5-6 mm nodule right upper lobe. A followup CT chest in 6 months. 2. Small pneumatocele left lower lobe, benign. 3. Coronary artery calcifications. 4. Right lower lobe subsegmental atelectasis/scarring Rl Interiano MD on January 20, 2017 at 16:14 Board Certified Radiologist. This report was verified electronically.
[2017-01-20 20:00] VITALS: BP 107/71; PULSE 71; RESP 19; TEMP 97.7; O2SAT 97
[2017-01-20] MEDS: SODIUM CHLORIDE 0.9% FLUSH 10 ML FLUSH IVF PRN (23:27)
[2017-01-21] VITALS: BP 114/73; PULSE 69; RESP 18; TEMP 96.6; O2SAT 98
[2017-01-21] MEDS: SODIUM CHLORIDE 0.9% FLUSH 10 ML FLUSH IVF PRN ×3 (00:12→06:18)
[2017-01-21] MEDS: MORPHINE SULFATE 4 MG/ML INJ IV PUSH PRN ×3 (03:23→09:38)
[2017-01-21 04:00] VITALS: BP 131/79; PULSE 57; RESP 19; TEMP 97; O2SAT 99
[2017-01-21] MEDS: LEVOTHYROXINE SODIUM 150 MCG TAB PO SCH (06:10)
[2017-01-21] MEDS: LEVOTHYROXINE SODIUM 25 MCG TAB PO SCH (06:10)
[2017-01-21 06:46] LABS: HEMATOCRIT 32.4 % (35.0-46.0); MEAN CORPUSCULAR HEMOGLOBIN 29.1 PG (27.0-34.0); MEAN CORPUSCULAR HGB CONC 32.7 % (32.0-36.0); PLATELET COUNT 207 TH/MM3 (150-450); RED BLOOD COUNT 3.64 MIL/MM3 (4.00-5.30); RED CELL DISTRIBUTION WIDTH 17.6 % (11.6-17.2); REVIEW FLAG FINAL; WHITE BLOOD COUNT 5.9 TH/MM3 (4.0-11.0)
[2017-01-21 08:00] VITALS: BP 131/86; PULSE 63; RESP 18; TEMP 97; O2SAT 99
[2017-01-21] MEDS: PANTOPRAZOLE SOD 40 MG DELAYED RELEASE TAB PO SCH ×2 (09:17→21:24)
[2017-01-21] MEDS: TOPIRAMATE 100 MG TAB PO SCH ×2 (09:17→21:30)
[2017-01-21] MEDS: FUROSEMIDE 20 MG TAB PO SCH (09:17)
[2017-01-21] MEDS: PRAVASTATIN SOD 20 MG TAB PO SCH (09:17)
[2017-01-21] MEDS: LOSARTAN 50 MG TAB PO SCH (09:17)
[2017-01-21] MEDS: FOLIC ACID 1 MG TAB PO SCH (09:17)
[2017-01-21] MEDS: ENOXAPARIN SODIUM 100 MG/ML SYRINGE SQ SCH ×2 (09:18→21:24)
[2017-01-21] MEDS: ESCITALOPRAM OXALATE 20 MG TAB PO SCH (09:19)
--- NOTE | 2017-01-21 09:25 | HHI.PR ---
Subjective Remarks Pt complains of upper abdominal pain. She states that she has not had a BM in 3 days. She is able to eat without difficulty +Flatus She is still having pain in the left antecubital fossa Objective Vitals Vital Signs Date Time Temp Pulse Resp B/P Pulse Ox O2 Delivery O2 Flow Rate FiO2 01/21/17 04:00 97.0 57 19 131/79 99 01/21/17 00:00 96.6 69 18 114/73 98 01/20/17 20:00 97.7 71 19 107/71 97 01/20/17 16:00 96.6 63 16 111/60 100 01/20/17 12:00 97.0 58 16 114/73 100 01/20/17 01/20/17 01/21/17 15:00 23:00 07:00 Intake Total 1805 ml 960 ml 1160 ml Output Total 1100 ml 1300 ml 1750 ml Balance 705 ml -340 ml -590 ml Intake Oral 1080 ml 960 ml 480 ml IV Total 725 ml 680 ml Output Urine Total 1100 ml 1300 ml 1750 ml # Bowel Movements 0 Result Diagram: 01/21/17 0602 01/20/17 0345 Other Results Laboratory Tests Test 01/19/17 01/19/17 01/20/17 01/20/17 11:28 18:18 03:45 12:25 Activated Partial 30.8 SEC 34.2 SEC 35.9 SEC 30.4 SEC Thromboplast Time Sodium Level 143 MEQ/L Potassium Level 3.9 MEQ/L Chloride Level 112 MEQ/L Carbon Dioxide Level 24.8 MEQ/L Anion Gap 6 MEQ/L Blood Urea Nitrogen 14 MG/DL Creatinine 0.71 MG/DL Estimat Glomerular Filtration 84 ML/MIN Rate Random Glucose 109 MG/DL Calcium Level 8.9 MG/DL Test 01/21/17 06:02 White Blood Count 5.9 TH/MM3 Red Blood Count 3.64 MIL/MM3 Hemoglobin 10.6 GM/DL Hematocrit 32.4 % Mean Corpuscular Volume 89.0 FL Mean Corpuscular Hemoglobin 29.1 PG Mean Corpuscular Hemoglobin 32.7 % Concent Red Cell Distribution Width 17.6 % Platelet Count 207 TH/MM3 Mean Platelet Volume 10.9 FL Imaging Last Impressions Chest CT 01/20/17 0000 Signed Impressions: Service Date/Time: Friday, January 20, 2017 15:45 - CONCLUSION: 1. A 5-6 mm nodule right upper lobe. A followup CT chest in 6 months. 2. Small pneumatocele left lower lobe, benign. 3. Coronary artery calcifications. 4. Right lower lobe subsegmental atelectasis/scarring Rl Interiano MD Abdomen/Pelvis CT 01/20/17 0000 Signed Impressions: Service Date/Time: Friday, January 20, 2017 15:45 - CONCLUSION: 1. Mild hepatic steatosis. 2. Focal adenomyomatosis of the gallbladder fundus, benign. 3. Calcified splenic granulomas. 4. Subcentimeter low-density likely related to hepatic cyst. 5. Status post hysterectomy. 6. Coronary artery calcifications and scattered atherosclerotic changes. Rl Interiano MD Lower Extremity Ultrasound 01/19/17 0000 Signed Impressions: Service Date/Time: Thursday, January 19, 2017 10:00 - CONCLUSION: 1. Incomplete compression of the popliteal vein and proximal peroneal vein on the right indicating possible small nonocclusive thrombus. This finding is not confirmed on the color Doppler images. 2. No evidence of lower extremity DVT on the left. Geovany Puga MD Venogram 01/18/17 0000 Signed Impressions: Service Date/Time: Wednesday, January 18, 2017 15:16 - CONCLUSION: 1. Uncomplicated venogram as above. 2. The deep venous system above the elbow is all widely patent. 3. Patient has occlusion of the radial vein throughout its course. Clinical symptoms of associated thrombophlebitis. Heparin drip was initiated. Treatment should include elevation of the affected extremity with warm compresses to the left forearm. Meir Fine MD Objective Remarks General: NAD, AAOx3 Chest: CTA Cardiac: Regular Abd: +BS, soft ND/NT Ext: Left antecubital fossa with cords/tenderness/erythema, improving. Left forearm swelling, good distal pulses. A/P Problem List: (1) Acute thrombosis of deep vein of left upper extremity Status: Acute Plan: - Pt is a 61 y/o female who presented to the ED with left arm pain, swelling and erythema that started about 2 days ago. - She was [facility]pt at [facility] on [facility]17 and was started her on Doxycycline and Eliquis. - An LUE ultrasound was performed on 01/17/17 which revealed extensive DVT involving the left upper extremity venous system extending from the axillary vein to the level of the ulnar vein. Subclavian and internal jugular veins not imaged. All other veins demonstrate thrombus that is mostly occlusive. - She was sent to the ED for further evaluation. - Pt has been started on Heparin gtt in ED and sent to IR for venogram and was found to have occlusion of radial vein with concern for thrombophlebitis. - The LUE DVT seems to be unprovoked. She does not have any hx of DVT, she is not on any hormone replacement therapy. - She did fly to [place] about a month ago but would be unusual to develop a DVT in the UE related to this. - Pt has a hx of tobacco use and her father at a young age, 58, with lung cancer. - Heparin was d/c's on 01/19/17 as pt was unable to get therapeutic. - Pt is on Lovenox 100mg Q12H - Pt is to elevate arm and use K-thermia pad - Pain medications changed to po today - Stool softeners BID and MOM as needed. - CT chest (01/20/17) --> A 5-6 mm nodule right upper lobe. A followup CT chest in 6 months. Small pneumatocele left lower lobe, benign. Coronary artery calcifications. Right lower lobe subsegmental atelectasis/scarring - CT Abd/pelvis (01/20/17) --> Mild hepatic steatosis. Focal adenomyomatosis of the gallbladder fundus, benign. Calcified splenic granulomas. Subcentimeter low-density likely related to hepatic cyst. Status post hysterectomy. Coronary artery calcifications and scattered atherosclerotic changes. - Cont. IVF for now - We will get appropriate hypercoagulable panel now and then more as needed after off anticoagulation. - pt will need to followup with Hematology/Oncology for possible PET scan and to followup on hypercoag panel. (2) HTN (hypertension) Status: Chronic Plan: - Cont. home meds (3) Hyperlipidemia Status: Chronic Plan: - Cont. home meds (4) Hypothyroidism Status: Chronic Plan: - Cont. home meds (5) Tobacco use Status: Chronic Plan: - Tobacco cessation Assessment and Plan Patient examined. Assessment and plan formulated with Meron Driver PA-C. I agree with the above. Problem Qualifiers (1) Acute thrombosis of deep vein of left upper extremity: Qualified Code: I82.622 - Acute deep vein thrombosis (DVT) of other vein of left upper extremity Meron Driver Jan 21, 2017 09:25 Jean Bear DO Jan 22, 2017 09:55
[2017-01-21] MEDS ORDERED: MAGNESIUM HYDROXIDE SUSP 30 ML CUP PO PRN (10:00)
[2017-01-21] MEDS ORDERED: ACETAMINOPHEN/HYDROcodone 325 MG/5 MG TAB PO PRN (10:00)
[2017-01-21 12:00] VITALS: BP 108/71; PULSE 61; RESP 18; TEMP 97.4; O2SAT 97
[2017-01-21] MEDS: DOCUSATE SODIUM 100 MG CAP PO SCH ×2 (13:41→21:24)
[2017-01-21] MEDS: ACETAMINOPHEN/HYDROcodone 325 MG/5 MG TAB PO PRN ×3 (13:42→23:01)
[2017-01-21 16:00] VITALS: BP 104/63; PULSE 61; RESP 18; TEMP 97.9; O2SAT 98
[2017-01-21 21:00] VITALS: BP 121/75; PULSE 62; RESP 16; TEMP 96.9; O2SAT 97
[2017-01-22] VITALS: BP 111/67; PULSE 62; RESP 16; TEMP 96.1; O2SAT 99
[2017-01-22 04:00] VITALS: BP 138/86; PULSE 55; RESP 16; TEMP 96.5; O2SAT 98
[2017-01-22] MEDS: ACETAMINOPHEN/HYDROcodone 325 MG/5 MG TAB PO PRN ×3 (04:29→14:48)
[2017-01-22] MEDS: LEVOTHYROXINE SODIUM 150 MCG TAB PO SCH (06:26)
[2017-01-22] MEDS: LEVOTHYROXINE SODIUM 25 MCG TAB PO SCH (06:26)
[2017-01-22 08:00] VITALS: BP 130/72; PULSE 54; RESP 18; TEMP 96.1; O2SAT 100
[2017-01-22] MEDS: DOCUSATE SODIUM 100 MG CAP PO SCH (09:15)
[2017-01-22] MEDS: PANTOPRAZOLE SOD 40 MG DELAYED RELEASE TAB PO SCH (09:15)
[2017-01-22] MEDS: TOPIRAMATE 100 MG TAB PO SCH (09:15)
[2017-01-22] MEDS: FUROSEMIDE 20 MG TAB PO SCH (09:16)
[2017-01-22] MEDS: PRAVASTATIN SOD 20 MG TAB PO SCH (09:16)
[2017-01-22] MEDS: ESCITALOPRAM OXALATE 20 MG TAB PO SCH (09:16)
[2017-01-22] MEDS: FOLIC ACID 1 MG TAB PO SCH (09:16)
[2017-01-22] MEDS: LOSARTAN 50 MG TAB PO SCH (09:16)
[2017-01-22] MEDS: ENOXAPARIN SODIUM 100 MG/ML SYRINGE SQ SCH (09:17)
[2017-01-22] MEDS ORDERED: APIX5TAB PO (09:52)
--- NOTE | 2017-01-22 10:02 | HHI.DS ---
Discharge Summary Admission Date Jan 18, 2017 at 12:47 Discharge Date: Jan 22, 2017 Admitting Diagnosis Acute LUE DVT (1) Acute thrombosis of deep vein of left upper extremity Diagnosis: Principal (2) HTN (hypertension) Diagnosis: Secondary (3) Hyperlipidemia Diagnosis: Secondary (4) Hypothyroidism Diagnosis: Secondary (5) Tobacco use Diagnosis: Secondary Brief History Ms. Suarez is a 61 y/o WF with RA, hyperlipidemia, HTN, and hypothyroidism who presented to the ED at [facility] on 01/18/17 with left arm pain, swelling and erythema that started about 2 days ago. She reports that she woke up with the pain in the LUE and noted erythema. She called her PCP but was unable to get into to see him and she went to [facility] for evaluation. They started her on Doxycycline and Eliquis on 01/17/17. An ultrasound was performed yesterday which revealed "extensive DVT involving the left upper extremity venous system extending from the axillary vein to the level of the ulnar vein. Subclavian and internal jugular veins not imaged. All other veins demonstrate thrombus that is mostly occlusive." She was sent to the ED for further evaluation. Pt has been started on Heparin gtt and she will be seen by IR for a venogram and attempt at removing the clot today. She does not have a history of DVT or hypercoagulable state. She does not take any oral hormone replacement therapy. Patient reports bilateral ankle fractures about 5 months prior. She reports flying to [place] about a month ago. CBC/BMP: 01/21/17 0602 01/20/17 0345 Significant Findings Laboratory Tests Test 01/19/17 01/19/17 01/20/17 01/20/17 11:28 18:18 03:45 12:25 Activated Partial 30.8 SEC 34.2 SEC 35.9 SEC 30.4 SEC Thromboplast Time (24.3-30.1) (24.3-30.1) (24.3-30.1) (24.3-30.1) Chloride Level 112 MEQ/L (98-107) Estimat Glomerular Filtration 84 ML/MIN (>89) Rate Random Glucose 109 MG/DL (74-106) Test 01/21/17 06:02 Red Blood Count 3.64 MIL/MM3 (4.00-5.30) Hemoglobin 10.6 GM/DL (11.6-15.3) Hematocrit 32.4 % (35.0-46.0) Red Cell Distribution Width 17.6 % (11.6-17.2) PE at Discharge General: NAD, AAOx3 Chest: CTA Cardiac: Regular Abd: +BS, soft ND/NT Ext: Left antecubital fossa with cords/tenderness/erythema, improving. Left forearm swelling, good distal pulses. Hospital Course (1) Acute thrombosis of deep vein of left upper extremity Status: Acute Plan: - Pt is a 61 y/o female who presented to the ED with left arm pain, swelling and erythema that started about 2 days ago. - She was seen outpt at [facility] on 01/17/17 and was started her on Doxycycline and Eliquis. - An LUE ultrasound was performed on 01/17/17 which revealed extensive DVT involving the left upper extremity venous system extending from the axillary vein to the level of the ulnar vein. Subclavian and internal jugular veins not imaged. All other veins demonstrate thrombus that is mostly occlusive. - She was sent to the ED for further evaluation. - Pt has been started on Heparin gtt in ED and sent to IR for venogram and was found to have occlusion of radial vein with concern for thrombophlebitis. - The LUE DVT seems to be unprovoked. She does not have any hx of DVT, she is not on any hormone replacement therapy. - She did fly to [place] about a month ago but would be unusual to develop a DVT in the UE related to this. - Pt has a hx of tobacco use and her father at a young age, 58, with lung cancer. - Pt is a smoker - Heparin was d/c's on 01/19/17 as pt was unable to get therapeutic. - Heparin changed to Lovenox 100mg Q12H - Pt instructed to elevate arm and use K-thermia pad - [place] prn - Stool softeners BID and MOM as needed. - CT chest (01/20/17) --> A 5-6 mm nodule right upper lobe. A followup CT chest in 6 months. Small pneumatocele left lower lobe, benign. Coronary artery calcifications. Right lower lobe subsegmental atelectasis/scarring - CT Abd/pelvis (01/20/17) --> Mild hepatic steatosis. Focal adenomyomatosis of the gallbladder fundus, benign. Calcified splenic granulomas. Subcentimeter low-density likely related to hepatic cyst. Status post hysterectomy. Coronary artery calcifications and scattered atherosclerotic changes. - hypercoagulable panel now and then more as needed after off anticoagulation, results pending - pt will need to followup with Hematology/Oncology for possible PET scan and to followup on hypercoag panel. - clinically pt is improved. Pt continues with palpable cord in left antecubital fossa, but no associated erythema. - Case d/w Dr. Cabrera, IR. Venogram was again reviewed. Clot burden below the level of the elbow and NOT amenable to lysis. - will discharge to home today - resume eliquis at 10mg BID x 7d, and then 5mg BID - f/u with PCP, Dr. Mckenzie in 1 week - f/u with Oncology/Hematology in 2 weeks. (2) HTN (hypertension) Status: Chronic Plan: - Cont. home meds (3) Hyperlipidemia Status: Chronic Plan: - Cont. home meds (4) Hypothyroidism Status: Chronic Plan: - Cont. home meds (5) Tobacco use Status: Chronic Plan: - Tobacco cessation Pt Condition on Discharge: Stable Discharge Disposition: Discharge Home Discharge Instructions DIET: Follow Instructions for: As Tolerated, No Restrictions Activities you can perform: Regular-No Restrictions Follow up Referrals: Oncology - 2 Weeks with [facility] PCP Follow-up - [address] [place] Mckenzie Changed Medications: Apixaban (Eliquis) 5 Mg Tab 5 MG PO BID 10mg PO BID 5mg PO BID Blood Clot Prevention #30 Ref 0 TAB ( Medication details modified) Continued Medications: Adalimumab 2-Pack Inj (Humira 2-Pack Inj) 40 Mg/0.8 Ml Syr 40 MG SQ Q14D Ref 0 KIT Escitalopram (Lexapro) 20 Mg Tab 20 MG PO DAILY Ref 0 TAB Folic Acid (Folic Acid) 20 Mg Cap 1 MG PO DAILY Furosemide (Lasix) 20 Mg Tab 20 MG PO DAILY Ref 0 TAB Levothyroxine (Synthroid) 175 Mcg Tab 175 MCG PO DAILY Thyroid Ref 0 TAB Losartan (Losartan) 100 Mg Tab 100 MG PO DAILY Blood Pressure Management Ref 0 TAB Lovastatin (Lovastatin) 20 Mg Tab 20 MG PO DAILY Cholesterol Management Ref 0 TAB Methotrexate (Methotrexate) 2.5 Mg Tab 2.5 MG PO Q7D Ref 0 TAB Pantoprazole (Protonix) 40 Mg Tab 40 MG PO BID Reflux Ref 0 TAB Tizanidine (Tizanidine) 4 Mg Cap 4 MG PO HS Muscle Spasm Ref 0 CAP Topiramate (Topamax) 100 Mg Tab 100 MG PO BID Control Seizures Ref 0 TAB Discontinued Medications: Doxycycline (Monohydrate) (Doxycycline) 100 Mg Cap 100 MG PO BID Jean Bear DO Jan 22, 2017 10:02
--- NOTE | 2017-01-22 10:03 | HHI.DCPOC ---
Discharge Care Plan Diagnosis: (1) Acute thrombosis of deep vein of left upper extremity (2) HTN (hypertension) (3) Hypothyroidism (4) Hyperlipidemia (5) Tobacco use Goals to Promote Your Health * To prevent worsening of your condition and complications * To maintain your health at the optimal level Directions to Meet Your Goals Take your medications as prescribed Follow your dietary instruction Follow activity as directed Keep your appointments as scheduled Take your immunizations and boosters as scheduled If your symptoms worsen call your PCP, if no PCP go to Urgent Care Center or Emergency Room Smoking is Dangerous to Your Health. Avoid second hand smoke Call the 24-hour hour crisis hotline for domestic abuse at Jean Bear DO Jan 22, 2017 10:03
[2017-01-22] MEDS ORDERED: DOCU1CAP39 PO (10:14)
[2017-01-22] MEDS ORDERED: HYDR-3516 PO (10:14)
[2017-01-22 12:00] VITALS: BP 100/70; PULSE 60; RESP 18; TEMP 96.7; O2SAT 98
[2017-01-22 16:00] VITALS: BP_SYST 113; BP_SYST 118; BP_DIAS 55; BP_DIAS 76; PULSE 102; PULSE 64; RESP 18; TEMP 97.6; TEMP 99.5; O2SAT 93; O2SAT 99
[2017-01-24 03:51] LABS: THROMBIN TIME FOR LA 20 sec (13-19)
[2017-01-24 23:53] LABS: PHOSPHATIDYLSERINE AB IGA LESS THAN 20.0 U/mL (()); PHOSPHATIDYLSERINE AB IGM LESS THAN 25.0 U/mL (())
== END 2017-01-22 17:29 | disposition home or self-care (01) | DRG 301 ==
LOC: NEPE 12:02 → OBSVTOIN 12:47 → NEDA 12:47 → HOCA 15:55
PROVIDERS: ADMIT Hospitalist; ATTEND Hospitalist
DX: I82.622 Acute embolism and thrombosis of deep veins of left upper extremity (principal); K76.89 Other specified diseases of liver; J98.4 Other disorders of lung; I10 Essential (primary) hypertension; E03.9 Hypothyroidism, unspecified; E78.5 Hyperlipidemia, unspecified; I25.10 Atherosclerotic heart disease of native coronary artery without angina pectoris; Z80.1 Family history of malignant neoplasm of trachea, bronchus and lung; Z85.43 Personal history of malignant neoplasm of ovary; Z87.11 Personal history of peptic ulcer disease; Z90.710 Acquired absence of both cervix and uterus; F17.200 Nicotine dependence, unspecified, uncomplicated
CPT/HCPCS: 36005; 71260; 74177; 75820; 76937; 80048; 81240; 81241; 81291; 83090; 85025; 85027; 85240; 85300; 85303; 85306; 85307; 85598; 85610; 85613; 85670; 85730; 86146; 86147; 86148; 93970; C1769; C1887; C1894; J1644; J1650; J2270; J3010; J7030; Q9963; Q9967